=== PATIENT | male | born 1980 | race Caucasian/White ===

== ENCOUNTER → 2018-04-10 | Outpatient (CLI) | payer OTHER ==
--- NOTE | 2018-04-10 10:18 | Diagnostic Imaging Report ---
Right knee MRI without contrast. History: Knee pain. Internal arrangement. Decreased range of motion. Torn meniscus. Comparison: None. Technique: Multiplanar multi-sequence MRI of the knee without contrast. Findings: Medial compartment: There is an obliquely oriented tear involving the posterior horn and body segments of the medial meniscus best seen on sagittal image 12 through 14. The medial compartmental articular cartilage surfaces are slightly thin. The medial collateral ligament complex is intact. Lateral compartment: No meniscal tear or cartilage abnormality. The LCL complex is normal. Intercondylar notch: The ACL and PCL are intact. Patellofemoral compartment: No chondromalacia or patellar dislocation. Extensor mechanism: The quadriceps and patellar tendons are normal. Other findings: There is a joint effusion and synovitis. There is no acute fracture, subluxation or avascular necrosis. There is a small Arthur's cyst. IMPRESSION: Medial meniscus tear. Small joint effusion, mild synovitis and small Arthur's cyst. Signed by: Dr. Surendra Mchugh M.D. on 04/10/2018 10:14 AM
== END ==
LOC: MRI 08:41
PROVIDERS: ATTEND Family Medicine
DX: M23.91 Unspecified internal derangement of right knee (principal)

== ENCOUNTER → 2018-10-23 | Outpatient (CLI) | payer OTHER ==
--- NOTE | 2018-10-23 10:25 | Diagnostic Imaging Report ---
TECHNIQUE: Magnetic resonance imaging of the LEFT KNEE was performed WITHOUT injected contrast. HISTORY: Left knee pain COMPARISON: None available. FINDINGS: LIGAMENTS AND TENDONS: ACL: Intact PCL: Intact Collateral ligaments: Intact Iliotibial band: Unremarkable Popliteal tendon: Intact Extensor mechanism: Intact JOINT: Menisci: Medial: Small horizontal tear to the posterior horn extending to the tibial articular surface sagittal image 26 and 25 Lateral: Intact Articular Cartilage: Medial Compartment: No focal defect. Lateral Compartment: No focal defect. Patellofemoral Compartment: No focal defect. Joint Fluid: Small ruptured Arthur's cyst. 3.5 cm ganglion posterior to the knee. BONE: No focal or infiltrative bone marrow replacing abnormality. No acute fracture. SOFT TISSUES: Otherwise, unremarkable. IMPRESSION: Medial meniscus small horizontal tear to the posterior horn. Signed by: Dr. Tarik Raya M.D. on 10/23/2018 10:22 AM
== END ==
LOC: MRI 08:26
PROVIDERS: ATTEND Family Medicine
DX: S83.282A Other tear of lateral meniscus, current injury, left knee, initial encounter (principal)

== ENCOUNTER → 2019-10-28 | Outpatient (CLI) | payer OTHER ==
--- NOTE | 2019-10-28 18:14 | Diagnostic Imaging Report ---
EXAM: CT Abdomen and Pelvis WITHOUT contrast INDICATION: CALCULUS OF KIDNEY, HEMATURIA COMPARISON: None. TECHNIQUE: Abdomen and pelvis were scanned utilizing a multidetector helical scanner from the lung base to the pubic symphysis without administration of IV contrast. Absence of intravenous contrast decreases sensitivity for detection of focal lesions and vascular pathology. Coronal and sagittal reformations were obtained. Routine protocol was performed. IV CONTRAST: None ORAL CONTRAST: Water COMPLICATIONS: None RADIATION DOSE: Total DLP: 378.7 mGy-cm Estimated effective dose: (DLP x 0.015 x size factor) mSv CTDIvol has been reviewed. It is below the limits set by the Radiation Protocol Committee (RPC). FINDINGS: LINES and TUBES: None. LOWER THORAX: Unremarkable HEPATOBILIARY: No biliary ductal dilation. GALLBLADDER: No radio-opaque stones or sludge. No wall thickening. SPLEEN: No splenomegaly. PANCREAS: No focal masses or ductal dilatation. ADRENALS: No adrenal nodules KIDNEYS/URETERS: There is a 3 mm nonobstructing calculus in the right kidney and 1 mm nonobstructing calculus in the left kidney. No hydronephrosis. No cystic or solid mass lesions. No stones. GI TRACT: No abnormal distention, wall thickening, or evidence of bowel obstruction. There are diverticula within the colon without evidence of diverticulitis. Appendix is normal. PELVIC ORGANS/BLADDER: Unremarkable. LYMPH NODES: No lymphadenopathy. VESSELS: Unremarkable. PERITONEUM / RETROPERITONEUM: No free air or fluid. BONES: Unremarkable. SOFT TISSUES: There is fat containing right inguinal hernia. There is a small fat containing umbilical hernia. IMPRESSION: 3 mm nonobstructing calculus in the right kidney and 1 mm nonobstructing calculus in the left kidney. No hydronephrosis. Signed by: Dl Delaney MD on 10/28/2019 6:11 PM
== END ==
LOC: RAD 16:33
PROVIDERS: ATTEND Urology
DX: R31.0 Gross hematuria (principal)
CPT/HCPCS: 74176

== ENCOUNTER → 2020-05-26 | Outpatient (CLI) | payer OTHER | END | disposition home or self-care (01) | LOC: MRI 07:31 | PROVIDERS: ATTEND Family Medicine | DX: M54.40 Lumbago with sciatica, unspecified side (principal); M51.26 Other intervertebral disc displacement, lumbar region | CPT/HCPCS: 72148 ==

== ENCOUNTER → 2020-07-06 | Day surgery (SDC) | payer OTHER ==
[~2020-07-06] MED LIST: DEXAMETHASONE SOD PHOS 10 MG/1 ML VIAL ONE; FENTANYL CITRATE/PF 100MCG/2 ML INJ ONE; IOPAMIDOL 200 MG/ML 20 ML VIAL IT ONE; LIDOCAINE HCL 1% 30ML-PF VIAL ONE; MIDAZOLAM HCL 2 MG/2 ML VIAL ONE; PROPOFOL IV EMULSION 10 MG/ML 20 ML VIAL ONE
[2020-07-06 08:35] VITALS: BP 128/81
== END | disposition home or self-care (01) ==
LOC: OR 05:44
PROVIDERS: ATTEND Physical Medicine & Rehabilitation Pain Medicine
DX: M54.16 Radiculopathy, lumbar region (principal); R93.7 Abnormal findings on diagnostic imaging of other parts of musculoskeletal system; Z01.812 Encounter for preprocedural laboratory examination; Z20.828 Contact with and (suspected) exposure to other viral communicable diseases
CPT/HCPCS: 77003; J1100; J2001; J2250; J3010; Q9967; U0002